=== PATIENT | female | born 1960 | race Caucasian/White ===

== ENCOUNTER 2018-07-05 11:27 | Inpatient (IN) ==
[2018-07-05 13:16] LABS: PT Patient Result 11.1 SECS
[2018-07-05 13:19] LABS: Apearance,Urine CLEAR (Clear); Bacteria,Urine Occasional /HPF (Few); Bilirubin,Urine Negative (Negative); Blood, Urine Small mg/dL (Negative); Glucose,Urine (UA) 50 mg/dL (Negative); Ketones,Urine Negative (Negative); Nitrite,Urine Negative (Negative); Protein,Urine Negative; RBC,Urine 2 /HPF (0-4); Urine Color Yellow (Yellow); Urine Specific Gravity 1.008 (1.001-1.035); Urine Urobilinogen < 2.0 EU/DL (0.2-1.0); WBC,Urine <1 /HPF (0-6)
[2018-07-05] MEDS ORDERED: SODIUM CHLORIDE 0.9% 1,000 ML IV STA (13:26)
[2018-07-05 13:30] LABS: Basophils % 0.1 % (0.0-0.8); Hematocrit 35.5 VOL% (35.7-47.0); Hemoglobin 13.7 GM/DL (12.0-16.0); Immature Granulocytes % 0.5 %; Immature Granulocytes Absolute 0.07 #; Lymphocytes # 1.1 10*3/uL (1.4-4.0); Lymphocytes % 7.8 % (21.3-54.2); Mean Corpuscular HGB Conc 38.6 GM/DL (32-36); Mean Corpuscular Hemoglobin 31 PG (27-34); Mean Corpuscular Volume 79.2 FL (87-102); Monocytes # 1.9 10*3/uL (0.11-0.8); Monocytes % 12.9 % (1.7-12.7); Neutrophils # 11.3 10*3/uL (1.4-7.4); Neutrophils % 78.7 % (38.7-73.9); Platelet Count 181 T/CUMM (130-400); Red Blood Count 4.48 MC/CUMM (3.8-5.5); Red Cell Distribution Width 11.3 % (9.3-17.3); White Blood Count 14.4 T/CUMM (4-12)
[2018-07-05 13:50] LABS: Platelet Estimate Adequate
[2018-07-05] MEDS ORDERED: ALBUTEROL/IPRATROPIUM 3 ML NEB RESP TX STA (15:05)
[2018-07-05 15:14] LABS: Alanine Aminotransferase 128 U/L (13-56); Albumin 3.5 G/DL (3.4-5.0); Alkaline Phosphatase 75 U/L (45-117); Aspartate Amino Transferase 305 U/L (0-37); Blood Urea Nitrogen 16 MG/DL (7-18); Calcium 8.3 MG/DL (8.5-10.1); Glucose 108 MG/DL (74-106); Osmolality,Calculated 215.3 MOS/KG (273-304); Total Protein 6.8 G/DL (6.4-8.3)
[2018-07-05 15:19] LABS: Potassium 2.4 MMOL/L (3.5-5.1); Sodium 105 MMOL/L (136-145)
[2018-07-05] MEDS ORDERED: POTASSIUM CHLORIDE 20 MEQ/15 ML UDCUP PO STA (15:33)
[2018-07-05] MEDS ORDERED: POTASSIUM CHLORIDE 20 MEQ TABLET PO ONE (15:37)
[2018-07-05] MEDS ORDERED: ALBUTEROL/IPRATROPIUM 3 ML NEB RESP TX PRN (16:23)
[2018-07-05] MEDS ORDERED: ONDANSETRON 4 MG/2 ML VIAL IV PRN (16:23)
[2018-07-05] MEDS ORDERED: ACETAMINOPHEN 500 MG TABLET PO PRN (16:23)
[2018-07-05] MEDS ORDERED: SODIUM CHLORIDE 0.9% 1,000 ML IV SCH (16:23)
[2018-07-05] MEDS: POTASSIUM CHLORIDE RIDER 10 MEQ in PREMIX 1 EACH IV PRN ×5 (16:52→21:53)
[2018-07-05 17:37] LABS: Potassium 2.4 MMOL/L (3.5-5.1)
[2018-07-05] MEDS ORDERED: BUTALBITAL/ACETAMIN/CAFFEINE 50-325-40 MG TABLET PO PRN (17:57)
[2018-07-05] MEDS ORDERED: BENZONATATE 100 MG CAPSULE PO PRN (18:11)
[2018-07-05 19:24] LABS: Barbiturates Screen,Urine Negative (Negative); Benzodiazepines Screen,Urine Negative (Negative); Cannabinoid Screen,Urine Negative (Negative); Opiate Screen,Urine Negative (Negative); Phencyclidine Screen,Urine Negative (Negative)
[2018-07-05] MEDS: OSELTAMIVIR 75 MG CAPSULE PO SCH (20:52)
[2018-07-05] MEDS: PARoxetine 20 MG TABLET PO SCH (20:52)
[2018-07-05] MEDS: DIVALPROEX 250 MG TABLET PO SCH (20:52)
[2018-07-05] MEDS: CLOPIDOGREL 75 MG TABLET PO SCH (21:19)
[2018-07-05] MEDS ORDERED: DEXTROSE 5% 250 ML IV SCH ×3 (22:30→23:30)
[2018-07-05] MEDS: DESMOPRESSIN 10 MCG NASAL SPRAY 5 ML BOTTLE ONE NARE PRN (22:50)
[2018-07-06] MEDS: POTASSIUM CHLORIDE RIDER 10 MEQ in PREMIX 1 EACH IV PRN ×2 (01:23→02:23)
[2018-07-06] MEDS: DESMOPRESSIN 10 MCG NASAL SPRAY 5 ML BOTTLE ONE NARE PRN ×2 (01:24→05:18)
[2018-07-06] MEDS ORDERED: DEXTROSE 5% 250 ML IV SCH ×2 (01:30→05:30)
[2018-07-06] MEDS: POTASSIUM CHLORIDE 20 MEQ/15 ML UDCUP PER TUBE PRN ×2 (03:12→05:22)
[2018-07-06 04:39] LABS: Basophils % 0.1 % (0.0-0.8); Hematocrit 33.2 VOL% (35.7-47.0); Hemoglobin 12.2 GM/DL (12.0-16.0); Immature Granulocytes % 0.3 %; Immature Granulocytes Absolute 0.04 #; Lymphocytes # 1.4 10*3/uL (1.4-4.0); Lymphocytes % 11.9 % (21.3-54.2); Mean Corpuscular HGB Conc 36.7 GM/DL (32-36); Mean Corpuscular Hemoglobin 30 PG (27-34); Mean Corpuscular Volume 81.4 FL (87-102); Mean Platelet Volume 11.2 FL (9.6-12.0); Monocytes # 2.1 10*3/uL (0.11-0.8); Monocytes % 18.4 % (1.7-12.7); Neutrophils # 8.1 10*3/uL (1.4-7.4); Neutrophils % 69.3 % (38.7-73.9); Platelet Count 186 T/CUMM (130-400); Red Blood Count 4.08 MC/CUMM (3.8-5.5); Red Cell Distribution Width 11.4 % (9.3-17.3); White Blood Count 11.6 T/CUMM (4-12)
[2018-07-06 05:06] LABS: Bilirubin,Total 1.3 MG/DL (0.2-1.0); Calcium 7.8 MG/DL (8.5-10.1); Potassium 3.5 MMOL/L (3.5-5.1); Thyroid Stimulating Hormone 2.1 uIU/ml (0.358-3.74); Total Protein 6.3 G/DL (6.4-8.3)
[2018-07-06 05:07] LABS: Lymphocytes 11 % (20-55); Platelet Estimate Normal; Polychromasia 1+; Segmented Neutrophils 71 % (50-85); Total Cells Counted 100
[2018-07-06 06:10] LABS: Hepatitis A Ab IgM Quant 0.05 Index; Hepatitis A Ab IgM Result Negative (Negative); Hepatitis B Core IgM Quant < 0.05 Index; Hepatitis B Core IgM Result Negative (Negative); Hepatitis B Surface Ag Quant 0.23 Index; Hepatitis B Surface Ag Result Negative (Negative); Hepatitis C Virus Ab Quant 0.02 Index; Hepatitis C Virus Ab Result Negative (Negative)
[2018-07-06] MEDS ORDERED: DEXTROSE 5% 500 ML IV SCH (08:40)
[2018-07-06] MEDS ORDERED: DEXTROSE 5% 500 ML IV ONE (08:40)
[2018-07-06 08:41] LABS: Sedimentation Rate-Westergren 4 MM/HR (0-30)
[2018-07-06] MEDS: PARoxetine 20 MG TABLET PO SCH ×2 (09:59→20:51)
[2018-07-06] MEDS: OSELTAMIVIR 75 MG CAPSULE PO SCH ×2 (09:59→20:51)
[2018-07-06] MEDS: ATORVASTATIN 40 MG TABLET PO SCH (10:00)
[2018-07-06] MEDS: DIVALPROEX 250 MG TABLET PO SCH ×2 (10:00→20:51)
[2018-07-06] MEDS: PANTOPRAZOLE 40 MG TABLET PO SCH (10:01)
[2018-07-06] MEDS ORDERED: DESMOPRESSIN 4 MCG/1 ML AMP IV PRN (10:43)
[2018-07-06] MEDS ORDERED: MAGNESIUM SULF RIDER 2 GM in PREMIX 1 EACH IV ONE (11:26)
[2018-07-06] MEDS ORDERED: FUROSEMIDE 20 MG/2 ML VIAL IV ONE ×2 (11:27→17:20)
[2018-07-06] MEDS ORDERED: SODIUM CHLORIDE 0.9% 1,000 ML IV SCH (11:30)
[2018-07-06] MEDS: POTASSIUM CHLORIDE 20 MEQ TABLET PO PRN (11:40)
[2018-07-06] MEDS: ALBUTEROL/IPRATROPIUM 3 ML NEB RESP TX SCH ×2 (12:20→18:50)
[2018-07-06] MEDS ORDERED: MAGNESIUM SULF RIDER 2 GM in PREMIX 1 EACH IV PRN (14:41)
[2018-07-06] MEDS ORDERED: MAGNESIUM SULF RIDER 4 GM in PREMIX 1 EACH IV PRN (14:41)
[2018-07-06] MEDS: cefTRIAXone 1,000 MG in SYRINGE 1 EACH IV SCH (15:01)
[2018-07-06] MEDS: methylPREDNISolone SOD SUC 40 MG/1 ML VIAL IV SCH ×2 (15:14→22:56)
[2018-07-06 16:21] LABS: ABG Base Excess 6.7 MMOL/L (-2.5-2.5); ABG HCO3 30.3 MMOL/L (20-26); ABG Oxygen Saturation 89.2 % (95-100); ABG PCO2 39.6 MM HG (35-48); ABG PH 7.494 (7.35-7.45); ABG PO2 52.4 MM HG (80-95); ABG TCO2 26.4 MMOL/L (23-27); Allen Test Positive
[2018-07-06] MEDS ORDERED: SODIUM CHLORIDE 3% INJ 500 ML IV SCH (17:30)
[2018-07-06] MEDS: CLOPIDOGREL 75 MG TABLET PO SCH (20:51)
[2018-07-07 00:35] LABS: ABG Base Excess 8.1 MMOL/L (-2.5-2.5); ABG HCO3 31.3 MMOL/L (20-26); ABG Oxygen Saturation 96.3 % (95-100); ABG PCO2 38.3 MM HG (35-48); ABG PO2 78.6 MM HG (80-95); ABG TCO2 32.5 MMOL/L (23-27); Allen Test Positive
[2018-07-07 05:23] LABS: Basophils % 0.1 % (0.0-0.8); Hematocrit 33.4 VOL% (35.7-47.0); Hemoglobin 12.2 GM/DL (12.0-16.0); Immature Granulocytes % 0.4 %; Immature Granulocytes Absolute 0.03 #; Lymphocytes # 0.8 10*3/uL (1.4-4.0); Lymphocytes % 9.1 % (21.3-54.2); Mean Corpuscular HGB Conc 36.5 GM/DL (32-36); Mean Corpuscular Hemoglobin 30 PG (27-34); Mean Corpuscular Volume 81.9 FL (87-102); Mean Platelet Volume 11.2 FL (9.6-12.0); Monocytes # 0.5 10*3/uL (0.11-0.8); Monocytes % 6.1 % (1.7-12.7); Neutrophils % 84.3 % (38.7-73.9); Platelet Count 227 T/CUMM (130-400); Red Blood Count 4.08 MC/CUMM (3.8-5.5); Red Cell Distribution Width 11.7 % (9.3-17.3); White Blood Count 8.3 T/CUMM (4-12)
[2018-07-07 05:47] LABS: Albumin 2.9 G/DL (3.4-5.0); Bilirubin,Total 0.7 MG/DL (0.2-1.0); Calcium 7.9 MG/DL (8.5-10.1); Osmolality,Calculated 241.2 MOS/KG (273-304); Potassium 2.9 MMOL/L (3.5-5.1); Total Protein 6.6 G/DL (6.4-8.3)
[2018-07-07] MEDS ORDERED: DESMOPRESSIN 4 MCG/1 ML AMP IV ONE (06:10)
[2018-07-07] MEDS: methylPREDNISolone SOD SUC 40 MG/1 ML VIAL IV SCH ×3 (06:25→22:51)
[2018-07-07] MEDS: DEXTROSE 5% 250 ML IV SCH ×2 (06:25→06:52)
[2018-07-07] MEDS: POTASSIUM CHLORIDE RIDER 10 MEQ in PREMIX 1 EACH IV PRN (06:44)
[2018-07-07] MEDS: ALBUTEROL/IPRATROPIUM 3 ML NEB RESP TX SCH ×4 (07:19→20:53)
[2018-07-07] MEDS: FUROSEMIDE 20 MG/2 ML VIAL IV SCH (08:20)
[2018-07-07] MEDS: DIVALPROEX 250 MG TABLET PO SCH ×2 (08:20→20:31)
[2018-07-07] MEDS: OSELTAMIVIR 75 MG CAPSULE PO SCH ×2 (08:20→20:31)
[2018-07-07] MEDS: PANTOPRAZOLE 40 MG TABLET PO SCH (08:20)
[2018-07-07] MEDS: POTASSIUM CHLORIDE 20 MEQ TABLET PO PRN ×4 (08:20→20:30)
[2018-07-07] MEDS: PARoxetine 20 MG TABLET PO SCH ×2 (08:20→20:35)
[2018-07-07] MEDS: ATORVASTATIN 40 MG TABLET PO SCH (08:20)
[2018-07-07] MEDS ORDERED: FUROSEMIDE 20 MG/2 ML VIAL IV SCH (09:00)
[2018-07-07] MEDS: cefTRIAXone 1,000 MG in SYRINGE 1 EACH IV SCH (15:35)
[2018-07-07] MEDS: CLOPIDOGREL 75 MG TABLET PO SCH (20:31)
[2018-07-07] MEDS: SODIUM CHLORIDE 3% INJ 500 ML IV SCH (22:45)
[2018-07-08] MEDS: POTASSIUM CHLORIDE 20 MEQ TABLET PO PRN ×2 (00:18→06:07)
[2018-07-08] MEDS: ALBUTEROL/IPRATROPIUM 3 ML NEB RESP TX SCH ×4 (01:28→21:25)
[2018-07-08 04:50] LABS: ABG Base Excess 8.1 MMOL/L (-2.5-2.5); ABG HCO3 31.7 MMOL/L (20-26); ABG PCO2 40.5 MM HG (35-48); ABG PH 7.512 (7.35-7.45); ABG PO2 87.7 MM HG (80-95)
[2018-07-08 04:59] LABS: Albumin 3.1 G/DL (3.4-5.0); Bilirubin,Total 0.6 MG/DL (0.2-1.0); Osmolality,Calculated 252.6 MOS/KG (273-304); Potassium 3.9 MMOL/L (3.5-5.1); Total Protein 6.9 G/DL (6.4-8.3)
[2018-07-08 05:32] LABS: Basophils % 0.3 % (0.0-0.8); Hematocrit 34.9 VOL% (35.7-47.0); Hemoglobin 12.4 GM/DL (12.0-16.0); Immature Granulocytes Absolute 0.31 #; Lymphocytes # 0.9 10*3/uL (1.4-4.0); Lymphocytes % 5.5 % (21.3-54.2); Mean Corpuscular HGB Conc 35.5 GM/DL (32-36); Mean Corpuscular Hemoglobin 30 PG (27-34); Mean Corpuscular Volume 84.3 FL (87-102); Mean Platelet Volume 10.8 FL (9.6-12.0); Monocytes # 1.1 10*3/uL (0.11-0.8); Monocytes % 7.2 % (1.7-12.7); Neutrophils # 13.4 10*3/uL (1.4-7.4); Platelet Count 282 T/CUMM (130-400); Red Blood Count 4.14 MC/CUMM (3.8-5.5); Red Cell Distribution Width 12.3 % (9.3-17.3); White Blood Count 15.8 T/CUMM (4-12)
[2018-07-08] MEDS: methylPREDNISolone SOD SUC 40 MG/1 ML VIAL IV SCH ×2 (06:07→17:08)
[2018-07-08] MEDS: DIVALPROEX 250 MG TABLET PO SCH ×2 (10:06→20:51)
[2018-07-08] MEDS: OSELTAMIVIR 75 MG CAPSULE PO SCH ×2 (10:07→20:51)
[2018-07-08] MEDS: PANTOPRAZOLE 40 MG TABLET PO SCH (10:08)
[2018-07-08] MEDS: ATORVASTATIN 40 MG TABLET PO SCH (10:08)
[2018-07-08] MEDS: FUROSEMIDE 20 MG/2 ML VIAL IV SCH (10:09)
[2018-07-08] MEDS: PARoxetine 20 MG TABLET PO SCH ×2 (10:11→20:51)
[2018-07-08] MEDS: SODIUM CHLORIDE 3% INJ 500 ML IV SCH ×2 (10:22→21:05)
[2018-07-08 13:10] LABS: Mycoplasma pneumoniae Ab, IgG Negative (Negative); Mycoplasma pneumoniae Ab, IgM Reactive (Negative)
[2018-07-08] MEDS: cefTRIAXone 1,000 MG in SYRINGE 1 EACH IV SCH (17:08)
[2018-07-08] MEDS: CLOPIDOGREL 75 MG TABLET PO SCH (20:51)
[2018-07-09] MEDS: clonazePAM 0.5 MG TABLET PO SCH ×2 (00:28→21:05)
[2018-07-09] MEDS: methylPREDNISolone SOD SUC 40 MG/1 ML VIAL IV SCH ×3 (00:28→16:54)
[2018-07-09] MEDS: ALBUTEROL/IPRATROPIUM 3 ML NEB RESP TX SCH ×4 (01:06→19:26)
[2018-07-09 07:35] LABS: Basophils # 0.1 10*3/uL (0.0-0.2); Basophils % 0.6 % (0.0-0.8); Eosinophils # 0.1 10*3/uL (0.0-0.87); Eosinophils % 0.2 % (0.00-10.9); Hematocrit 36.5 VOL% (35.7-47.0); Hemoglobin 12.4 GM/DL (12.0-16.0); Immature Granulocytes % 5.1 %; Immature Granulocytes Absolute 1.22 #; Lymphocytes # 1.1 10*3/uL (1.4-4.0); Lymphocytes % 4.6 % (21.3-54.2); Mean Corpuscular Hemoglobin 30 PG (27-34); Mean Corpuscular Volume 88.6 FL (87-102); Mean Platelet Volume 10.4 FL (9.6-12.0); Monocytes # 1.6 10*3/uL (0.11-0.8); Monocytes % 6.8 % (1.7-12.7); Neutrophils # 19.9 10*3/uL (1.4-7.4); Neutrophils % 82.7 % (38.7-73.9); Platelet Count 333 T/CUMM (130-400); Red Blood Count 4.12 MC/CUMM (3.8-5.5); Red Cell Distribution Width 12.9 % (9.3-17.3); White Blood Count 24.1 T/CUMM (4-12)
[2018-07-09 07:52] LABS: Albumin 3.2 G/DL (3.4-5.0); Bilirubin,Total 0.4 MG/DL (0.2-1.0); Osmolality,Calculated 268.5 MOS/KG (273-304); Potassium 4.1 MMOL/L (3.5-5.1)
[2018-07-09 07:56] LABS: Hypochromasia 1+; Lymphocytes 2 % (20-55); Segmented Neutrophils 94 % (50-85); Total Cells Counted 100
[2018-07-09 07:57] LABS: Microcytosis Slight
[2018-07-09] MEDS: PARoxetine 20 MG TABLET PO SCH ×2 (09:38→21:05)
[2018-07-09] MEDS: PANTOPRAZOLE 40 MG TABLET PO SCH (09:38)
[2018-07-09] MEDS: DIVALPROEX 250 MG TABLET PO SCH ×2 (09:38→21:04)
[2018-07-09] MEDS: CARVEDILOL 3.125 MG TABLET PO SCH ×2 (09:38→16:54)
[2018-07-09] MEDS: ATORVASTATIN 40 MG TABLET PO SCH (09:38)
[2018-07-09] MEDS: FUROSEMIDE 20 MG/2 ML VIAL IV SCH (09:39)
[2018-07-09] MEDS: SODIUM CHLORIDE 3% INJ 500 ML IV SCH (15:22)
[2018-07-09] MEDS: cefTRIAXone 1,000 MG in SYRINGE 1 EACH IV SCH (16:53)
[2018-07-09] MEDS: CLOPIDOGREL 75 MG TABLET PO SCH (21:05)
[2018-07-10] MEDS: methylPREDNISolone SOD SUC 40 MG/1 ML VIAL IV SCH ×3 (00:30→14:54)
[2018-07-10] MEDS: ALBUTEROL/IPRATROPIUM 3 ML NEB RESP TX SCH ×4 (01:12→20:33)
[2018-07-10 05:23] LABS: Basophils # 0.2 10*3/uL (0.0-0.2); Basophils % 0.8 % (0.0-0.8); Eosinophils # 1.5 10*3/uL (0.0-0.87); Eosinophils % 5.7 % (0.00-10.9); Hematocrit 37.3 VOL% (35.7-47.0); Hemoglobin 12.6 GM/DL (12.0-16.0); Immature Granulocytes % 6.7 %; Immature Granulocytes Absolute 1.75 #; Lymphocytes # 1.8 10*3/uL (1.4-4.0); Mean Corpuscular HGB Conc 33.8 GM/DL (32-36); Mean Corpuscular Hemoglobin 30 PG (27-34); Mean Corpuscular Volume 89.4 FL (87-102); Mean Platelet Volume 9.8 FL (9.6-12.0); Monocytes # 2.7 10*3/uL (0.11-0.8); Monocytes % 10.4 % (1.7-12.7); NRBC # 0.02 10*3/uL; Neutrophils % 69.4 % (38.7-73.9); Platelet Count 353 T/CUMM (130-400); Red Blood Count 4.17 MC/CUMM (3.8-5.5)
[2018-07-10 05:45] LABS: Albumin 3.1 G/DL (3.4-5.0); Bilirubin,Total 0.5 MG/DL (0.2-1.0); Calcium 9.6 MG/DL (8.5-10.1); Osmolality,Calculated 274.2 MOS/KG (273-304); Potassium 3.4 MMOL/L (3.5-5.1)
[2018-07-10 06:34] LABS: Band Neutrophils 3 % (0-10); Eosinophils 5 % (0-10); Lymphocytes 9 % (20-55); Metamyelocytes 2 %; Myelocytes 1 %; Platelet Estimate Normal; Segmented Neutrophils 69 % (50-85); Total Cells Counted 100
[2018-07-10 06:35] LABS: Anisocytosis 2+; Macrocytosis Slight; Microcytosis 2+
[2018-07-10] MEDS: PANTOPRAZOLE 40 MG TABLET PO SCH (08:28)
[2018-07-10] MEDS: CARVEDILOL 3.125 MG TABLET PO SCH ×2 (08:28→17:22)
[2018-07-10] MEDS: DIVALPROEX 250 MG TABLET PO SCH ×2 (08:28→22:41)
[2018-07-10] MEDS: POTASSIUM CHLORIDE 20 MEQ TABLET PO PRN ×3 (08:28→13:30)
[2018-07-10] MEDS: ATORVASTATIN 40 MG TABLET PO SCH (08:28)
[2018-07-10] MEDS: PARoxetine 20 MG TABLET PO SCH ×2 (08:28→22:41)
[2018-07-10] MEDS: FUROSEMIDE 20 MG/2 ML VIAL IV SCH (08:28)
[2018-07-10] MEDS: POTASSIUM CHLORIDE 20 MEQ TABLET PO SCH (09:53)
[2018-07-10] MEDS: cefTRIAXone 1,000 MG in SYRINGE 1 EACH IV SCH (14:56)
[2018-07-10] MEDS ORDERED: risperiDONE 1 MG TABLET PO ONE (17:15)
[2018-07-10] MEDS ORDERED: CARVEDILOL 3.125 MG TABLET PO ONE (22:35)
[2018-07-10] MEDS ORDERED: cefTRIAXone 500 MG in SYRINGE 1 EACH IV SCH (22:39)
[2018-07-10] MEDS: clonazePAM 0.5 MG TABLET PO SCH (22:41)
[2018-07-10] MEDS: CLOPIDOGREL 75 MG TABLET PO SCH (22:41)
[2018-07-10] MEDS: NICOTINE 14 MG/24 HR PATCH TRANSDERM SCH (22:41)
[2018-07-11] MEDS: methylPREDNISolone SOD SUC 40 MG/1 ML VIAL IV SCH ×4 (00:03→23:48)
[2018-07-11] MEDS: ALBUTEROL/IPRATROPIUM 3 ML NEB RESP TX SCH ×4 (01:04→19:44)
[2018-07-11 04:29] LABS: Basophils # 0.1 10*3/uL (0.0-0.2); Basophils % 0.4 % (0.0-0.8); Eosinophils # 1.1 10*3/uL (0.0-0.87); Eosinophils % 3.7 % (0.00-10.9); Hematocrit 37.1 VOL% (35.7-47.0); Hemoglobin 12.5 GM/DL (12.0-16.0); Immature Granulocytes % 7.1 %; Immature Granulocytes Absolute 2.08 #; Lymphocytes # 1.3 10*3/uL (1.4-4.0); Lymphocytes % 4.5 % (21.3-54.2); Mean Corpuscular HGB Conc 33.7 GM/DL (32-36); Mean Corpuscular Hemoglobin 31 PG (27-34); Mean Corpuscular Volume 90.5 FL (87-102); Mean Platelet Volume 9.9 FL (9.6-12.0); Monocytes # 2.6 10*3/uL (0.11-0.8); Monocytes % 8.8 % (1.7-12.7); Neutrophils % 75.5 % (38.7-73.9); Platelet Count 354 T/CUMM (130-400); White Blood Count 29.1 T/CUMM (4-12)
[2018-07-11 04:45] LABS: Bilirubin,Total 0.4 MG/DL (0.2-1.0); Calcium 9.3 MG/DL (8.5-10.1); Osmolality,Calculated 275.2 MOS/KG (273-304)
[2018-07-11 06:03] LABS: Band Neutrophils 3 % (0-10); Eosinophils 3 % (0-10); Segmented Neutrophils 87 % (50-85)
[2018-07-11 06:04] LABS: Platelet Estimate Adequate; Total Cells Counted 100
[2018-07-11] MEDS: PARoxetine 20 MG TABLET PO SCH ×2 (09:31→20:49)
[2018-07-11] MEDS: risperiDONE 1 MG TABLET PO SCH (09:31)
[2018-07-11] MEDS: ATORVASTATIN 40 MG TABLET PO SCH (09:31)
[2018-07-11] MEDS: PANTOPRAZOLE 40 MG TABLET PO SCH (09:31)
[2018-07-11] MEDS: CARVEDILOL 6.25 MG TABLET PO SCH ×2 (09:32→17:30)
[2018-07-11] MEDS: POTASSIUM CHLORIDE 20 MEQ TABLET PO SCH (09:32)
[2018-07-11] MEDS: DIVALPROEX 250 MG TABLET PO SCH ×2 (09:34→20:48)
[2018-07-11] MEDS: FUROSEMIDE 20 MG/2 ML VIAL IV SCH (09:34)
[2018-07-11] MEDS: NICOTINE 14 MG/24 HR PATCH TRANSDERM SCH (09:35)
[2018-07-11] MEDS: cefTRIAXone 500 MG in SYRINGE 1 EACH IV SCH (15:45)
[2018-07-11] MEDS: clonazePAM 0.5 MG TABLET PO SCH (20:49)
[2018-07-11] MEDS: CLOPIDOGREL 75 MG TABLET PO SCH (20:49)
[2018-07-11] MEDS ORDERED: NICOTINE 14 MG/24 HR PATCH TRANSDERM SCH (21:00)
[2018-07-12] MEDS: ALBUTEROL/IPRATROPIUM 3 ML NEB RESP TX SCH ×2 (00:45→07:15)
[2018-07-12 05:13] LABS: Basophils # 0.2 10*3/uL (0.0-0.2); Basophils % 0.5 % (0.0-0.8); Eosinophils # 0.8 10*3/uL (0.0-0.87); Eosinophils % 2.7 % (0.00-10.9); Hematocrit 35.6 VOL% (35.7-47.0); Immature Granulocytes % 7.2 %; Immature Granulocytes Absolute 2.23 #; Lymphocytes # 2.3 10*3/uL (1.4-4.0); Lymphocytes % 7.4 % (21.3-54.2); Mean Corpuscular HGB Conc 33.7 GM/DL (32-36); Mean Corpuscular Hemoglobin 31 PG (27-34); Mean Corpuscular Volume 91.5 FL (87-102); Mean Platelet Volume 9.7 FL (9.6-12.0); Monocytes # 2.4 10*3/uL (0.11-0.8); Monocytes % 7.6 % (1.7-12.7); Neutrophils # 23.2 10*3/uL (1.4-7.4); Neutrophils % 74.6 % (38.7-73.9); Platelet Count 354 T/CUMM (130-400); Red Blood Count 3.89 MC/CUMM (3.8-5.5); Red Cell Distribution Width 13.2 % (9.3-17.3); White Blood Count 31.1 T/CUMM (4-12)
[2018-07-12 05:46] LABS: Albumin 2.7 G/DL (3.4-5.0); Bilirubin,Total 0.6 MG/DL (0.2-1.0); Calcium 9.1 MG/DL (8.5-10.1); Osmolality,Calculated 278.1 MOS/KG (273-304); Potassium 3.8 MMOL/L (3.5-5.1); Total Protein 7.1 G/DL (6.4-8.3)
[2018-07-12 06:29] LABS: Band Neutrophils 12 % (0-10); Lymphocytes 3 % (20-55); Platelet Estimate Normal; Segmented Neutrophils 73 % (50-85); Total Cells Counted 100
[2018-07-12 06:30] LABS: Smudge Cells Few
[2018-07-12] MEDS: methylPREDNISolone SOD SUC 40 MG/1 ML VIAL IV SCH ×2 (06:37→15:32)
[2018-07-12] MEDS: POTASSIUM CHLORIDE 20 MEQ TABLET PO SCH (09:37)
[2018-07-12] MEDS: ATORVASTATIN 40 MG TABLET PO SCH (09:37)
[2018-07-12] MEDS: risperiDONE 1 MG TABLET PO SCH (09:37)
[2018-07-12] MEDS: FUROSEMIDE 20 MG/2 ML VIAL IV SCH (09:37)
[2018-07-12] MEDS: DIVALPROEX 250 MG TABLET PO SCH (09:38)
[2018-07-12] MEDS: CARVEDILOL 6.25 MG TABLET PO SCH (09:38)
[2018-07-12] MEDS: PARoxetine 20 MG TABLET PO SCH (09:38)
[2018-07-12] MEDS: PANTOPRAZOLE 40 MG TABLET PO SCH (09:38)
[2018-07-12 12:21] VITALS: BP 112/87
[2018-07-12] MEDS ORDERED: ZIPRASIDONE 20 MG/1 ML VIAL IM ONE (14:31)
[2018-07-12] MEDS: cefTRIAXone 500 MG in SYRINGE 1 EACH IV SCH (15:31)
== END 2018-07-12 16:06 | disposition home or self-care (01) | DRG 640 ==
LOC: N.ED 11:27 → SUATTDRO 15:31 → N.EDINP 15:31 → N.CC 16:12 → N.2E 07-10 14:28
PROVIDERS: ADMIT Internal Medicine; ATTEND Internal Medicine